=== PATIENT | female | born 1940 | race Caucasian/White ===

== ENCOUNTER 2016-04-07 12:59 | Emergency (ER) | payer MEDICARE ==
--- NOTE | 2016-04-07 13:16 | RAD ---
CHEST 1 VIEW: HISTORY: Intubated. COMPARISON: 12/18/15. FINDINGS: Cardiac silhouette is magnified by projection. Parenchymal opacity throughout the right lung has pr ogressed. Mediastinum is midline with aortic calcification. The tip of the endotracheal catheter p rojects over the thoracic inlet. IMPRESSION: 1. Endotracheal catheter is in good radiographic position. 2. Increasing pulmonary vascular congestion and right lung parenchymal opacity. Close continued ra diographic followup is suggested. POS: RUTH
[2016-04-07] MEDS ORDERED: Calcium Chloride 1 GM/10 ML Abboject SYRINGE ONE (13:37)
[2016-04-07] MEDS ORDERED: Sodium Bicarb 50 MEQ/50 ML Abboject 8.4% SYRINGE ONE (13:37)
[2016-04-07] MEDS ORDERED: EPINEPHrine 1 MG/10 ML Abboject SYRINGE ONE (13:37)
[2016-04-07] MEDS ORDERED: Sodium Chloride 0.9% 1,000 ML BAG ONE (13:37)
--- NOTE | 2016-04-07 15:07 | ERRECORD ---
[facility] EMERGENCY RECORD HPI CARDIAC ARREST (14:30 LLDO) CHIEF COMPLAINT: Patient presents for evaluation of cardiac arrest, Patient presents for evaluation of respiratory arrest. HISTORIAN: History provided by patient's family, Additional history obtained from EMS, unwitnessed. probably not more than 10 minutes without anycpr, then family found and started cpr and called 911. ems arrived and worked for 70 min before getting to ed. never got any rhythm other than asystole or pea. after arrival at ed, treatment continued for an additional 17 minutes with the same results before pronouncing pt at 1315. TIME COURSE: Approximate time of arrest unknown, unwitnessed, Time before basic life support initiated less than 6 minutes, Time before advanced cardiac life support initiated less than 10 minutes. PRIOR TO ARRIVAL: Occurred at home, Initial cardiac rhythm asystole, Drugs given prior to arrival in emergency department: EPINEPHRINE, Drugs given prior to arrival in emergency department:, BICARB and calcium, Treatments in progress upon arrival to emergency department: Airway, IV access, established with intraosseous site, CPR in progress, Defibrillation. CPR: Side and/or site verified, Patient identification confirmed, Sterile procedures observed, Emergent consent implied, Cardiopulmonary resuscitation indicated for cardiac arrest, Procedure performed by Attending, Cardiac rhythm prior to procedure: Asystole, Cardiac rhythm after procedure: Agonal rhythm. DEFIBRILLATION PROCEDURE: Defibrillation indicated for cardiac arrest, defib done once by ems crew en route. ROS (14:42 LLDO) CONSTITUTIONAL: on arrival pt cold and unresponsive. no cardiac or resp activity. no neuro activity. bookkeeping clerk reported the pupils were fixed and dilated on their arrival at the pt's home, before any meds were given. EYES: ONLY ABOVE. CARDIOVASCULAR: above. RESPIRATORY: above. SKIN: cold. NEUROLOGIC: above. NOTES: Systems not reviewed; unable. PAST MEDICAL HISTORY MEDICAL HISTORY: Past medical history includes endocrine disease, hypothyroidism, Past medical history includes history of hypertension, Past medical history includes history of malignancy, lymphoma, Date of last treatment: stopped chemo in 2012. Past medical history includes endocrine disease, hypothyroidism, Past medical history includes history of hypertension. Lymphoma 1 /2 yrs ago with history of Chemo treatments. (13:16 AWAT) FEMALE SURGICAL HISTORY: growth removed from thyroid, Surgical history of section 36 yrs ago. (13:16 AWAT) &a-1R&a+25V*p+0X*i1351X*c202B*c15G*c2P*p-0X&a-25V&a+1R Name: Shayy Dawson : 1940 F75 MedRec: [id number] AcctNum: [id number] Prepared: Jessica Apr 07, 2016 16:58 by Interface Page 1 of 3 pMD [facility] EMERGENCY RECORD PSYCHIATRIC HISTORY: no history of suicidal ideations, No history of suicide attempts, No history of hallucinations, No history of homicidal ideations, No history of violence towards others, Psychiatric history includes, anxiety. (13:16 AWAT) SOCIAL HISTORY: Patient drinks socially, rarely, Patient denies drug use, Patient has no smoking history, Lives at home. Patient drinks socially, rarely, Patient has no smoking history, Patient denies alcohol use, Patient denies drug use. (13:16 AWAT) NOTES: Nursing records reviewed, Agree with nursing records, Old chart reviewed, Medication list reviewed. (14:54 LLDO) KNOWN ALLERGIES bupropion HCl (Unconfirmed) ciprofloxacin (Unconfirmed) ciprofloxacin HCl (Unconfirmed) codeine (Unconfirmed) codeine sulfate: Reaction: Hives methylprednisolone (Unconfirmed) pravastatin (Unconfirmed) simvastatin (Unconfirmed) tramadol (Unconfirmed) UNKNOWN venlafaxine HCl (Unconfirmed) CURRENT MEDICATIONS (14:00 CJEF) Unknown PHYSICAL EXAM (14:49 LLDO) CONSTITUTIONAL: no vitals could be obtained. HEAD: Head exam included findings of head atraumatic, normocephalic. EYES: fixed and dilated. RESPIRATORY CHEST: no spontaneous activity. could hear air flow only with bagging. CARDIOVASCULAR: no spontaneous activity. could feel pulse with cpr compressions. NEURO: SEE HPI. MEDICATION ADMINISTRATION SUMMARY Drug Name: *EPINEPHrine injection, Dose Ordered: 1 mg, Route: IV Push, Status: Given, Time: 13:14 04/07/2016, Drug Name: *sodium bicarbonate intravenous, Dose Ordered: 50 mEq, Route: IV Piggy Back, Status: Given, Time: 13:04/07/2016, Drug Name: *EPINEPHrine injection, Dose Ordered: 1 mg, Route: IV Push, Status: Given, Time: 13:14 04/07/2016, Drug Name: *calcium chloride intravenous, Dose Ordered: 10 mg, Route: IV Push, Status: Given, Time: 13:14 04/07/2016, Drug Name: *sodium bicarbonate intravenous, Dose Ordered: 50 mEq, &a-1R&a+25V*p+0X*[id number]*c202B*c15G*c2P*p-0X&a-25V&a+1R Name: Shayy Dawson : 1940 F75 MedRec: [id number] AcctNum: [id number] Prepared: Jessica Apr 07, 2016 16:58 by Interface Page 2 of 3 pMD [facility] EMERGENCY RECORD Route: IV Piggy Back, Status: Given, Time: 13:14 04/07/2016, *Additional information available in notes, Detailed record available in Medication Service section. PROBLEM LIST No recorded problems DIAGNOSIS (14:57 LLDO) FINAL: PRIMARY: CARDIAC ARREST CAUSE UNSPECIFIED, ADDITIONAL: RESPIRATORY ARREST. PRESCRIPTION No recorded prescriptions DISPOSITION PATIENT: Disposition Type: , Disposition: . (14:57 LLDO) Patient left the department. (16:52 JPCOLLIN) Black: AWAT=REJI Armijo, Dylan SALAZAR=REJI Allen, Jacki SANCHEZ=REJI Pickett, Nancy LLDO=MD Wilfredo, Brian &a-1R&a+25V*p+0X*[id number]*c202B*c15G*c2P*p-0X&a-25V&a+1R Name: Shayy Dawson : 1940 F75 MedRec: [id number] AcctNum: [id number] Prepared: Jessica Apr 07, 2016 16:58 by Interface Page 3 of 3 pMD MTDD
--- NOTE | 2016-04-07 15:10 | PICIS ---
[facility] EMERGENCY RECORD TRIAGE (FriApr 07, 2016 13:14 AWAT) TRIAGE NOTES: ARRIVED AT 1258, CPR IN PROGRESS FROM HOME. ESTIMATED 70 MINUTE DOWN TIME, EMS ARRIVED HERE AFTER 60 MINUTES OF CPR, AND FAMILY HAD ALREADY BEGUN CPR BEFORE THEIR ARRIVAL.... (FriApr 07, 2016 13:14 AWAT) PATIENT: NAME: Shayy Dawson, AGE: 75, GENDER: female, : [id number], TIME OF GREET: FriApr 07, 2016 13:00, PREFERRED LANGUAGE: Syriac, ETHNICITY: Not or , FALL RISK: NO, ECODE BILLING MAP: [facility] ER, SSN: [id number], Zip Code: [address], KG WEIGHT: 49.9 (est.), PHONE: , , , PERSON ID: [id number], PCP: dom. (FriApr 07, 2016 13:14 AWAT) COMPLAINT: CARDIAC ARREST. (FriApr 07, 2016 13:14 AWAT) ADMISSION: URGENCY: 1 Critical, ADMISSION SOURCE: Home, TRANSPORT: AMBULANCE - [facility] EMS, BED: ED -02. (FriApr 07, 2016 13:14 AWAT) PAIN: Notes: ALL ABOVE INFORMATION JUST FORWARDED FROM PREVIOUS VISIT. NOBODY AVAILABLE FOR HISTORY VERIFICATION AT THIS TIME. (13:16 AWAT) TREATMENTS IN PROGRESS: IO catheter placed by EMS, See EMS Record, C-Collar in place, Backboard/Spineboard in place, Patient intubated on arrival, with endotracheal tube, Size: 7.0, at the teeth: 20, ETT Secure, breath sounds equal bilaterally, Airway assisted, Ventilation assisted, by ventilator, Patient on oxygen, Percent O2 =100, CPR in progress on arrival, Patient on director of cardiac cath lab, Rhythm: ASYSTOLE, Medications Given, SEE EMS RUN SHEET (6 EPI'S, 1 NAHCO3). (13:14 AWAT) PROVIDERS: TRIAGE NURSE: Dylan Armijo RN. (FriApr 07, 2016 13:14 AWAT) PREVIOUS VISIT ALLERGIES: codeine sulfate. (Finley Apr 07, 2016 13:14 AWAT) codeine sulfate. (13:16 AWAT) KNOWN ALLERGIES bupropion HCl (Unconfirmed) ciprofloxacin (Unconfirmed) ciprofloxacin HCl (Unconfirmed) codeine (Unconfirmed) codeine sulfate: Reaction: Hives methylprednisolone (Unconfirmed) pravastatin (Unconfirmed) simvastatin (Unconfirmed) tramadol (Unconfirmed) UNKNOWN venlafaxine HCl (Unconfirmed) CURRENT MEDICATIONS (14:00 [facility]) Unknown NURSING ASSESSMENT: CARDIOVASCULAR (13:14 JPER) &a-1R&a+25V*p+0X*[id number]*c202B*c15G*c2P*p-0X&a-25V&a+1R Name: Shayy Dawson : 1940 F75 MedRec: [id number] AcctNum: [id number] Prepared: Jessica Apr 07, 2016 16:59 by Interface Page 1 of 8 pMD [facility] EMERGENCY RECORD CONSTITUTIONAL: Patient arrives, via [facility], Unsteady gait, Lift to cart, History obtained from, [facility], Patient appears, unconscious, Patient, unresponsive, Patient, unresponsive, Patient is, Skin abnormal, Skin temperature is cold, Skin dry, Skin, pale in color, with peripheral cyanosis, Mucous membranes, pale, Mucous membranes, Patient is well-groomed, Patient complains of CARDIAC ARREST / CPR IN PROGRESS. PAIN: PT IS U/U. CARDIOVASCULAR: Left radial pulse absent, Right radial pulse absent, Left dorsalis pedis pulse absent, Right dorsalis pedis pulse absent, Notes: PT IN PEA; NO VITAL SIGNS UPON ARRIVAL. RESPIRATORY/CHEST: Neck and chest exam findings include trachea midline, Chest expansion equal, Chest movement symmetrical, Notes: PT ARRIVED INTUBATED WITH #7FR ET TUBE; 21 CM AT THE TEETH; ON THE PORTABLE VENTILATOR SEE EMS RUN SHEET. 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, Patient intubated prior to arrival, with endotracheal tube size (mm) 7FR, at lip (cm) 21, Breath sounds present bilaterally, VOMITUS NOTED IN THROAT AND TUBE, Patient in spinal immobilization on arrival, with a cervical collar, on a long board, Blood pressure: NO VS PER EMS, Pulse: NO PULSE PER EMS, Respiratory rate: NO SPONTANEOUS RESP PER EMS, Cardiac rhythm in field pulseless electrical activity, IV access in place prior to arrival: Site 1, Intraosseous catheter, 0.9 normal saline 1 Liter infusing, Amount infused (mL) LESS THAN 500ML, LEFT HUMEROUS, EPINEPHRINE administered prior to arrival, amount (mg) 6 AMPS FRUIT OR NUT FARMER, given via intraosseous line. ASSESSMENT: Patient with no vital signs, Patient placed on director of cardiac cath lab, showing pulseless electrical activity, Patient placed on non-invasive blood pressure monitor, Patient placed on continuous pulse oximetry, Adult/pediatric oxisensor applied, Patient placed on carbon dioxide monitor, 23. AIRWAY: Wall suction used, Hyperventilated before and after suctioning, of thin, brown sputum. BREATHING: Breathing assessment findings: patient is intubated, on 100%, via ventilator applied, Ventilator settings, FIO2 NONE, Tidal volume 600, Rate 14, PEEP NONE, Alarms set and on, Chest X-ray ordered, Chest X-ray completed, Time completed 1303. CIRCULATION: Circulatory assessment findings include no palpable pulse, Blood pressure, unable to be obtained, Cardiopulmonary resuscitation continues, Intraosseous line established, using an E-Z IO, IV site number one, Fluids:, 0.9 normal &a-1R&a+25V*p+0X*j3493T*c202B*c15G*c2P*p-0X&a-25V&a+1R Name: Shayy Dawson : 1940 F75 MedRec: [id number] AcctNum: [id number] Prepared: Jessica Apr 07, 2016 16:59 by Interface Page 2 of 8 pMD [facility] EMERGENCY RECORD saline 1 liter hung, first bag. DRUGS: EPINEPHRINE, (mg) 2, Other medication given: SODIUM BICARB 2 AMPS, CALCIUM CHLORIDE 1AMP. DEFIBRILLATION: Notes: NA. PACING: Notes: NA. ADDITIONAL PROCEDURES: Notes: NA. CODE TERMINATION: Notes: PT AND CODE CALLED AT 1315. CRITICAL CARE TIME: Facility critical care time, Actual time (minutes): 17, for this critical care patient. NOTES: 2 additional staff were required to perform this procedure. NURSING PROCEDURE: CRITICAL CARE TIME (16:51 JPER) CRITICAL CARE TIME: Time spent providing critical care to the patient is detailed in the Notes section, 1258 TO 1315. NURSING PROCEDURE: NURSE NOTES (13:14 JPER) NURSES NOTES: Notes: SEE SCANNED IMAGES FOR NURSES NOTE. MEDICATION ADMINISTRATION SUMMARY Drug Name: *EPINEPHrine injection, Dose Ordered: 1 mg, Route: IV Push, Status: Given, Time: 13:14 04/07/2016, Drug Name: *sodium bicarbonate intravenous, Dose Ordered: 50 mEq, Route: IV Piggy Back, Status: Given, Time: 13:14 04/07/2016, Drug Name: *EPINEPHrine injection, Dose Ordered: 1 mg, Route: IV Push, Status: Given, Time: 13:14 04/07/2016, Drug Name: *calcium chloride intravenous, Dose Ordered: 10 mg, Route: IV Push, Status: Given, Time: 13:14 04/07/2016, Drug Name: *sodium bicarbonate intravenous, Dose Ordered: 50 mEq, Route: IV Piggy Back, Status: Given, Time: 13:14 04/07/2016, *Additional information available in notes, Detailed record available in Medication Service section. MEDICATION SERVICE (13:14 LLDO) calcium chloride intravenous: Order: calcium chloride intravenous (calcium chloride) - Dose: 10 mg : IV Push Schedule: Now Notes: Read back and verified, Verbal Order Ordered by: Brian Villalobos MD Entered by: REJI Lozano Apr 07, 2016 13:52 Documented as given by: REJI Lozano Apr 07, 2016 13:14 Patient, Medication, Dose, Route and Time verified prior to administration. Amount given: 10MG, IV SITE #1 IVP, subsequent different medication, Slowly, Connections checked prior to administration, Line traced prior to administration, Catheter placement confirmed via flush prior to administration, IV site without signs or symptoms of infiltration &a-1R&a+25V*p+0X*e7704M*c202B*c15G*c2P*p-0X&a-25V&a+1R Name: Shayy Dawson : 1940 F75 MedRec: [id number] AcctNum: [id number] Prepared: Jessica Apr 07, 2016 16:59 by Interface Page 3 of 8 pMD [facility] EMERGENCY RECORD during medication administration, No swelling during administration, No drainage during administration, IV flushed after administration, Correct patient, time, route, dose and medication confirmed prior to administration, Patient advised of actions and side-effects prior to administration, Allergies confirmed and medications reviewed prior to administration, Side rails up, Cart in lowest position, GIVEN AT 1305. EPINEPHrine injection: Order: EPINEPHrine injection (epinephrine) - Dose: 1 mg : IV Push Schedule: Now Notes: Read back and verified, Verbal Order Ordered by: Brian Villalobos MD Entered by: REJI Lozano Apr 07, 2016 13:48 Documented as given by: REJI Lozano Apr 07, 2016 13:14 Patient, Medication, Dose, Route and Time verified prior to administration. Amount given: 1 MG, IV SITE #1 IVP, subsequent different medication, Slowly, Connections checked prior to administration, Line traced prior to administration, Catheter placement confirmed via flush prior to administration, IV site without signs or symptoms of infiltration during medication administration, No swelling during administration, No drainage during administration, IV flushed after administration, Correct patient, time, route, dose and medication confirmed prior to administration, Patient advised of actions and side-effects prior to administration, Allergies confirmed and medications reviewed prior to administration, Side rails up, Cart in lowest position, GIVEN AT 1302. EPINEPHrine injection: Order: EPINEPHrine injection (epinephrine) - Dose: 1 mg : IV Push Schedule: Now Notes: Read back and verified, Verbal Order Ordered by: Brian Villalobos MD Entered by: REJI Lozano Apr 07, 2016 13:53 Documented as given by: REJI Lozano Apr 07, 2016 13:14 Patient, Medication, Dose, Route and Time verified prior to administration. Amount given: 1MG, IV SITE #1 IVP, subsequent different medication, Slowly, Connections checked prior to administration, Line traced prior to administration, Catheter placement confirmed via flush prior to administration, IV site without signs or symptoms of infiltration during medication administration, No swelling during administration, No drainage during administration, IV flushed after administration, Correct patient, time, route, dose and medication confirmed prior to administration, Patient advised of actions and side-effects prior to administration, Allergies confirmed and medications reviewed prior to administration, Side rails up, Cart in lowest position, GIVEN AT 1309. sodium bicarbonate intravenous: Order: sodium bicarbonate intravenous (sodium bicarbonate) - Dose: 50 mEq : IV Piggy Back &a-1R&a+25V*p+0X*i6225T*c202B*c15G*c2P*p-0X&a-25V&a+1R Name: Shayy Dawson : 1940 F75 MedRec: [id number] AcctNum: [id number] Prepared: Jessica Apr 07, 2016 16:59 by Interface Page 4 of 8 D [facility] EMERGENCY RECORD Schedule: Now Notes: Read back and verified, Verbal Order Ordered by: Brian Villalobos MD Entered by: REJI Lozano Apr 07, 2016 13:50 Documented as given by: REJI Lozano Apr 07, 2016 13:14 Patient, Medication, Dose, Route and Time verified prior to administration. Amount given: 50MEQ, IV SITE #1 IVP, subsequent different medication, Slowly, Connections checked prior to administration, Line traced prior to administration, Catheter placement confirmed via flush prior to administration, IV site without signs or symptoms of infiltration during medication administration, No swelling during administration, No drainage during administration, IV flushed after administration, Correct patient, time, route, dose and medication confirmed prior to administration, Patient advised of actions and side-effects prior to administration, Allergies confirmed and medications reviewed prior to administration, Side rails up, Cart in lowest position, GIVEN AT 1303. sodium bicarbonate intravenous: Order: sodium bicarbonate intravenous (sodium bicarbonate) - Dose: 50 mEq : IV Piggy Back Schedule: Now Notes: Read back and verified, Verbal Order Read back and verified, Verbal Order Ordered by: Brian Villalobos MD Entered by: REJI Lozano Apr 07, 2016 13:54 Documented as given by: REJI Lozano Apr 07, 2016 13:14 Patient, Medication, Dose, Route and Time verified prior to administration. Amount given: 50 MEQ, IV SITE #1 IVP, subsequent different medication, Slowly, Connections checked prior to administration, Line traced prior to administration, Catheter placement confirmed via flush prior to administration, IV site without signs or symptoms of infiltration during medication administration, No swelling during administration, No drainage during administration, IV flushed after administration, Correct patient, time, route, dose and medication confirmed prior to administration, Patient advised of actions and side-effects prior to administration, Allergies confirmed and medications reviewed prior to administration, Patient tolerated procedure well, Side rails up, Cart in lowest position, GIVEN AT 1311. HPI CARDIAC ARREST (14:30 LLDO) CHIEF COMPLAINT: Patient presents for evaluation of cardiac arrest, Patient presents for evaluation of respiratory arrest. HISTORIAN: History provided by patient's family, Additional history obtained from EMS, unwitnessed. probably not more than 10 minutes without anycpr, then family found and started cpr and called 911. ems arrived and worked for 70 min before getting to ed. never got any rhythm other &a-1R&a+25V*p+0X*s4713A*c202B*c15G*c2P*p-0X&a-25V&a+1R Name: Shayy Dawson : 1940 F75 MedRec: [id number] AcctNum: [id number] Prepared: Jessica Apr 07, 2016 16:59 by Interface Page 5 of 8 pMD [facility] EMERGENCY RECORD than asystole or pea. after arrival at ed, treatment continued for an additional 17 minutes with the same results before pronouncing pt at 1315. TIME COURSE: Approximate time of arrest unknown, unwitnessed, Time before basic life support initiated less than 6 minutes, Time before advanced cardiac life support initiated less than 10 minutes. PRIOR TO ARRIVAL: Occurred at home, Initial cardiac rhythm asystole, Drugs given prior to arrival in emergency department: EPINEPHRINE, Drugs given prior to arrival in emergency department:, BICARB and calcium, Treatments in progress upon arrival to emergency department: Airway, IV access, established with intraosseous site, CPR in progress, Defibrillation. CPR: Side and/or site verified, Patient identification confirmed, Sterile procedures observed, Emergent consent implied, Cardiopulmonary resuscitation indicated for cardiac arrest, Procedure performed by Attending, Cardiac rhythm prior to procedure: Asystole, Cardiac rhythm after procedure: Agonal rhythm. DEFIBRILLATION PROCEDURE: Defibrillation indicated for cardiac arrest, defib done once by ems crew en route. ROS (14:42 LLDO) CONSTITUTIONAL: on arrival pt cold and unresponsive. no cardiac or resp activity. no neuro activity. degreasing solution reclaimer reported the pupils were fixed and dilated on their arrival at the pt's home, before any meds were given. EYES: ONLY ABOVE. CARDIOVASCULAR: above. RESPIRATORY: above. SKIN: cold. NEUROLOGIC: above. NOTES: Systems not reviewed; unable. PAST MEDICAL HISTORY MEDICAL HISTORY: Past medical history includes endocrine disease, hypothyroidism, Past medical history includes history of hypertension, Past medical history includes history of malignancy, lymphoma, Date of last treatment: stopped chemo in 2012. Past medical history includes endocrine disease, hypothyroidism, Past medical history includes history of hypertension. Lymphoma 1 /2 yrs ago with history of Chemo treatments. (13:16 AWAT) FEMALE SURGICAL HISTORY: growth removed from thyroid, Surgical history of section 36 yrs ago. (13:16 AWAT) PSYCHIATRIC HISTORY: no history of suicidal ideations, No history of suicide attempts, No history of hallucinations, No history of homicidal ideations, No history of violence towards others, Psychiatric history includes, anxiety. (13:16 AWAT) SOCIAL HISTORY: Patient drinks socially, rarely, Patient denies drug use, Patient has no smoking history, Lives at home. Patient drinks socially, rarely, Patient has no smoking history, Patient denies alcohol use, Patient denies drug use. (13:16 &a-1R&a+25V*p+0X*d9475H*c202B*c15G*c2P*p-0X&a-25V&a+1R Name: Shayy Dawson : 1940 F75 MedRec: [id number] AcctNum: [id number] Prepared: Jessica Apr 07, 2016 16:59 by Interface Page 6 of 8 pMD [facility] EMERGENCY RECORD AWAT) NOTES: Nursing records reviewed, Agree with nursing records, Old chart reviewed, Medication list reviewed. (14:54 LLDO) PHYSICAL EXAM (14:49 LLDO) CONSTITUTIONAL: no vitals could be obtained. HEAD: Head exam included findings of head atraumatic, normocephalic. EYES: fixed and dilated. RESPIRATORY CHEST: no spontaneous activity. could hear air flow only with bagging. CARDIOVASCULAR: no spontaneous activity. could feel pulse with cpr compressions. NEURO: SEE HPI. EVENTS TRANSFER: Triage to Emergency Main ED -02. (Jessica Apr 07, 2016 13:14 AWAT) Emergency Main ED -02 to Holding. (15:35 JPER) Removed from Emergency Holding. (16:52 JPER) PROBLEM LIST No recorded problems DIAGNOSIS (14:57 LLDO) FINAL: PRIMARY: CARDIAC ARREST CAUSE UNSPECIFIED, ADDITIONAL: RESPIRATORY ARREST. DISPOSITION PATIENT: Disposition Type: , Disposition: . (14:57 LLDO) Patient left the department. (16:52 JPER) PRESCRIPTION No recorded prescriptions IMAGING PACKET: Image captured from scanner. (14:29 AWAT) Page 2 added. Image captured from scanner. (14:30 AWAT) Page 3 added. Image captured from scanner. (15:24 AWAT) Page 4 added. Image captured from scanner. (15:24 AWAT) NURSE NOTES: Image captured from scanner. (15:54 JPER) Page 2 added. Image captured from scanner. (15:54 JPER) MONITOR STRIPS: Image captured from scanner. (16:40 JPER) Page 2 added. Image captured from scanner. (16:40 JPER) Page 3 added. Image captured from scanner. (16:40 JPER) *SUPPLY CHARGE SHEET: Image captured from scanner. (16:41 JPER) ADMIN (14:57 LLDO) DIGITAL SIGNATURE: MD Wilfredo, Brian. &a-1R&a+25V*p+0X*f3247N*c202B*c15G*c2P*p-0X&a-25V&a+1R Name: Shayy Dawson : 1940 75 MedRec: [id number] AcctNum: [id number] Prepared: Jessica Apr 07, 2016 16:59 by Interface Page 7 of 8 pMD [facility] EMERGENCY RECORD Black: AWAT=REJI Armijo, Dylan SALAZAR=REJI Allen, Jacki SANCHEZ=REJI Pickett, Nancy LLDO=MD Villalobos Lloyd &a-1R&a+25V*p+0X*t4855U*c202B*c15G*c2P*p-0X&a-25V&a+1R Name: Shayy Dawson : 1940 F75 MedRec: [id number] AcctNum: [id number] Prepared: Jessica Apr 07, 2016 16:59 by Interface Page 8 of 8 pMD MTDD
== END 2016-04-07 13:15 | disposition expired ==
LOC: MADERS 12:59
DX: I46.9 Cardiac arrest, cause unspecified (principal); E03.9 Hypothyroidism, unspecified; I10 Essential (primary) hypertension
CPT/HCPCS: 71010; 96374; 96375; J0171; J7050